=== PATIENT | female | born 1940 | race Caucasian/White ===

== ENCOUNTER 2021-06-23 09:45 | Outpatient (CLI) | payer MEDICARE, BC | END 2021-06-23 09:46 | disposition home or self-care (01) | LOC: CSHCT 09:45 | PROVIDERS: ATTEND Student in an Organized Health Care Education/Training Program | DX: N28.89 Other specified disorders of kidney and ureter (principal); N28.1 Cyst of kidney, acquired | CPT/HCPCS: 74178; 82565 ==